=== PATIENT | male | born 1950 | race Caucasian/White ===

== ENCOUNTER 2016-08-31 09:03 | Day surgery (SDC) | payer MEDICAID ==
[~2016-08-31] VITALS: Ht 165.1 cm; Wt 80.9 kg
[~2016-08-31 09:03] MED LIST: SODIUM CHLORIDE 0.9% 1,000 ML IV ONE
[2016-08-31] MEDS ORDERED: SODIUM CHLORIDE 0.9% 1,000 ML IV ONE (09:15)
[2016-08-31] MEDS ORDERED: COLC0.6T69 PO (09:42)
[2016-08-31] MEDS ORDERED: CARV12 PO (09:42)
[2016-08-31] MEDS ORDERED: LISI-662 PO (09:42)
[2016-08-31] MEDS ORDERED: REPA1 PO (09:42)
[2016-08-31] MEDS ORDERED: AMLO-512 PO (09:42)
[2016-08-31] MEDS ORDERED: FURO20 PO (09:42)
[2016-08-31] MEDS ORDERED: CeFAZolin 1 GM/DEXTROSE 50 ML IV ONE ×2 (09:48→11:00)
[2016-08-31 09:50] LABS: BASOPHILS % (AUTO) 0.6 % (0.0-2.0); EOSINOPHILS % (AUTO) 1.3 % (1.0-6.0); HEMATOCRIT 41.6 % (41-53); HEMOGLOBIN 14.4 g/dL (13.5-17.5); LYMPHOCYTES # (AUTO) 1.7 K/uL (1.0-4.8); LYMPHOCYTES % (AUTO) 21.3 % (22.0-44.0); MEAN CORPUSCULAR HEMOGLOBIN 30.2 pg (26.0-34.0); MEAN CORPUSCULAR HGB CONC 34.5 G/dL (31.0-37.0); MEAN CORPUSCULAR VOLUME 88 fL (80-100); MONOCYTES # (AUTO) 0.7 K/uL (0.1-1.0); MONOCYTES % (AUTO) 9.1 % (2.0-9.0); NEUTROPHILS # (AUTO) 5.5 K/uL (1.8-7.7); NEUTROPHILS % (AUTO) 67.7 % (40.0-70.0); PLATELET COUNT (AUTO) 211 K/uL (150-450); RED BLOOD CELL COUNT(AUTO) 4.75 MIL/uL (4.50-5.90); RED CELL DISTRIBUTION WIDTH 14.2 % (11.5-14.5); WHITE BLOOD COUNT (AUTO) 8.1 K/uL (4.5-11.0)
[2016-08-31 09:54] LABS: CALCIUM, TOTAL 8.4 mg/dL (8.8-10.5); CREATININE 2.76 mg/dL (0.60-1.30); POTASSIUM 3.7 mmol/L (3.5-5.1)
[2016-08-31] MEDS ORDERED: ASPI-1093 PO (10:25)
[2016-08-31] MEDS: LIDOCAINE HCL/PF 1% 30 ML VIAL ONE ×2 (11:11→11:20)
[2016-08-31] MEDS: BUPIVACAINE HCL/PF 0.5% 30 ML VIAL ONE ×2 (11:11→11:20)
[2016-08-31] MEDS: DEXAMETHASONE SOD PHOS 4 MG/ML VIAL ONE ×2 (11:30→11:34)
[2016-08-31] MEDS ORDERED: MIDAZOLAM HCL 2 MG/2 ML VIAL IVP ONE (12:00)
[2016-08-31] MEDS ORDERED: LIDOCAINE HCL/PF 2% 5 ML VIAL INJ ONE (12:00)
== END 2016-08-31 13:10 | disposition home or self-care (01) ==
LOC: SURGERY 09:03
PROVIDERS: ATTEND Podiatrist Foot & Ankle Surgery
DX: M20.42 Other hammer toe(s) (acquired), left foot (principal); E11.22 Type 2 diabetes mellitus with diabetic chronic kidney disease; I12.9 Hypertensive chronic kidney disease with stage 1 through stage 4 chronic kidney disease, or unspecified chronic kidney disease; N18.3 Chronic kidney disease, stage 3 (moderate); M17.0 Bilateral primary osteoarthritis of knee; G47.30 Sleep apnea, unspecified; M19.90 Unspecified osteoarthritis, unspecified site; E66.9 Obesity, unspecified; Z72.89 Other problems related to lifestyle; Z98.890 Other specified postprocedural states
CPT/HCPCS: 28285; 36415; 73630; 80048; 85025; 88304; 88311; J0690; J1100; J2250; J3490 ×3; J7030